=== PATIENT | male | born 1935 | race Caucasian/White ===

== ENCOUNTER 2017-12-08 10:44 | Inpatient (IN) | payer MEDICARE ==
[2017-12-08] MEDS ORDERED: Acetaminophen 325 MG Tab PO PRN (12:24)
[2017-12-08] MEDS: Furosemide 40 MG/4 ML VIAL IVPUSH SCH (13:09)
[2017-12-08] MEDS: Sodium Chloride 0.9% 10 ML Syringe FLUSH PRN (13:10)
--- NOTE | 2017-12-08 13:14 | PCM.HP ---
H&P History of Present Illness - General Date of Service: 12/08/17 Admit Problem/Dx: Admission Diagnosis/Problem Admission Diagnosis/Problem CHF, Congestive heart failure Source of Information: Patient, Family History Limitations: Reports: No Limitations - History of Present Illness Initial Comments - Free Text/Narative: Patient is in the area visiting family, drove up from [place] with his . He started with shortness of breath, wheezing and dry cough. Took two nitro yesterday with relief of shortness of breath. No fever. Patient has a complex medication history of ischemic cardiomyopathy, HTN, CAD with two stents placed in 2009 and ICD/pacemaker placed in 2016. Was previously on diuretics but stopped once the patient was placed on entresto which was about 1 year ago. Patient had to sleep with two pillows last night. No change in weight. Onset of Symptoms: Reports: Gradual Duration of Symptoms: Reports: Getting Worse Improves with: Reports: Medication, Rest Worsens with: Reports: Movement Associated Symptoms: Reports: Cough - Related Data Allergies/Adverse Reactions: Allergies Allergy/AdvReac Type Severity Reaction Status Date / Time Penicillins Allergy Shortness Verified 12/08/17 12:37 of Breath Past Medical History HEENT History: Reports: Cataract, Hard of Hearing, Impaired Vision Cardiovascular History: Reports: CAD, Cardiomyopathy, Heart Failure, [place], Pacemaker, Stents Musculoskeletal History: Reports: Osteoarthritis Neurological History: Reports: Other (See Below) Other Neuro History: Short term memory loss, currently testing for diagnosis Oncologic (Cancer) History: Reports: Squamous Cell Carcinoma Other Oncologic History: Nose Dermatologic History: Reports: Melanoma Other Dermatologic History: Nose - Infectious Disease History Infectious Disease History: Reports: Chicken Pox, Measles, Mumps - Past Surgical History HEENT Surgical History: Reports: Cataract Surgery Other HEENT Surgeries/Procedures: bilateral cat surgery Cardiovascular Surgical History: Reports: AICD, Pacer GI Surgical History: Reports: Hernia Repair/Other Dermatological Surgical History: Reports: Skin Biopsy Social & Family History - Family History Cardiac: Reports: Hypertension (in both parents) - Tobacco Use Smoking Status *Q: Never Smoker Second Hand Smoke Exposure: No - Caffeine Use Caffeine Use: Reports: Coffee, Tea - Recreational Drug Use Recreational Drug Use: No H&P Review of Systems - Review of Systems: Review Of Systems: See Below General: Reports: Fatigue HEENT: Reports: No Symptoms Pulmonary: Reports: Shortness of Breath, Wheezing, Cough Cardiovascular: Reports: Dyspnea on Exertion Gastrointestinal: Reports: No Symptoms Genitourinary: Reports: No Symptoms Musculoskeletal: Reports: No Symptoms Skin: Reports: No Symptoms Psychiatric: Reports: Depression Neurological: Reports: No Symptoms Hematologic/Lymphatic: Reports: No Symptoms Immunologic: Reports: No Symptoms Exam - Exam Exam: See Below - Vital Signs Vital Signs: Last Vital Signs Temp 96.8 F 12/08/17 12:11 Pulse 97 12/08/17 12:11 Resp 18 12/08/17 12:11 BP 109/76 12/08/17 12:11 Pulse Ox 98 12/08/17 12:11 Weight: 186 lb - Exam Quality Assessment: Supplemental Oxygen, DVT Prophylaxis General: Alert, Oriented, Cooperative HEENT: Conjunctiva Clear, EACs Clear, EOMI, Hearing Intact, Mucosa Moist & [place] , Nares Patent, Posterior Pharynx Clear Neck: Supple, Trachea Midline Lungs: Normal Respiratory Effort, Decreased Breath Sounds Cardiovascular: Regular Rate, Normal S1, Normal S2, Irregular Rhythm, Systolic Murmur GI/Abdominal Exam: Normal Bowel Sounds, Soft, Non-Tender, No Organomegaly, No Distention, No Abnormal Bruit Back Exam: Normal Inspection Extremities: Normal Inspection, Normal Range of Motion, Non-Tender, No Pedal Edema, Normal Capillary Refill Peripheral Pulses: 1+: Dorsalis Pedis (L), Dorsalis Pedis (R) Skin: Warm, Dry, Intact Neurological: Cranial Nerves Intact, Reflexes Equal Bilateral Neuro Extensive - Mental Status: Alert, Oriented x3, Normal Mood/Affect, Normal Cognition, Memory Intact Neuro Extensive - Motor, Sensory, Reflexes: CN II-XII Intact, Normal Gait DTR: 1+: Achilles (L), Achilles (R) Psychiatric: Alert, Normal Affect, Normal Mood - Problem List (1) Congestive heart failure (CHF) SNOMED Code(s): 98842086 ICD Code: I50.9 - HEART FAILURE, UNSPECIFIED Status: Acute Current Visit : Yes Qualifiers: Heart failure type: unspecified Heart failure chronicity: acute Qualified Code(s): I50.9 - Heart failure, unspecified (2) Hypertension SNOMED Code(s): 73203792 ICD Code: I10 - ESSENTIAL (PRIMARY) HYPERTENSION Status: Acute Current Visit: Yes Qualifiers: Hypertension type: essential hypertension Qualified Code(s): I10 - Essential (primary) hypertension (3) Ischemic cardiomyopathy SNOMED Code(s): 705152267 ICD Code: I25.5 - ISCHEMIC CARDIOMYOPATHY Status: Acute Current Visit: Yes (4) Atherosclerosis SNOMED Code(s): 02578686 ICD Code: I70.90 - UNSPECIFIED ATHEROSCLEROSIS Status: Acute Current Visit: Yes (5) Hyperlipemia SNOMED Code(s): 10273847 ICD Code: E78.5 - HYPERLIPIDEMIA, UNSPECIFIED Status: Acute Current Visit : Yes Qualifiers: Hyperlipidemia type: mixed hyperlipidemia Qualified Code(s): E78.2 - Mixed hyperlipidemia Problem List Initiated/Reviewed/Updated: Yes Orders Last 24hrs: Active Orders 24 hr Category Date Time Status Patient Status [ADT] Routine ADT 12/08/17 12:24 Ordered Ambulate [RC] PER UNIT ROUTINE Care 12/08/17 12:27 Ordered Cardiac Monitoring [RC] CONTINUOUS Care 12/08/17 12:27 Ordered EKG Documentation Completion [RC] ASDIRECTED Care 12/08/17 12:30 Ordered Intake and Output [RC] QSHIFT Care 12/08/17 12:26 Ordered May Shower [RC] ASDIRECTED Care 12/08/17 12:24 Ordered Oxygen Therapy [RC] PRN Care 12/08/17 12:24 Ordered Peripheral IV Care [RC] . DIRECTED Care 12/08/17 12:28 Ordered Up ad Cherise [RC] ASDIRECTED Care 12/08/17 12:24 Ordered VTE/DVT Education [RC] PER UNIT ROUTINE Care 12/08/17 12:24 Ordered Vital Signs [RC] Q4H Care 12/08/17 12:24 Ordered Regular Diet [DIET] Diet 12/08/17 Lunch Ordered Chest 2V [CR] Routine Exams 12/08/17 10:20 Taken CBC WITH AUTO DIFF [HEME] DAILY Lab 12/09/17 05:11 Ordered CBC WITH AUTO DIFF [HEME] DAILY Lab 12/10/17 05:11 Ordered CBC WITH AUTO DIFF [HEME] DAILY Lab 12/11/17 05:11 Ordered COMPREHENSIVE METABOLIC PN,CMP [CHEM] DAILY Lab 12/09/17 05:11 Ordered COMPREHENSIVE METABOLIC PN,CMP [CHEM] DAILY Lab 12/10/17 05:11 Ordered COMPREHENSIVE METABOLIC PN,CMP [CHEM] DAILY Lab 12/11/17 05:11 Ordered DD [D-DIMER QUANTITATIVE] [COAG] Routine Lab 12/08/17 12:32 Ordered PRO B-TYPE NATRIUR PEPT,BNPPRO [CHEM] DAILY Lab 12/09/17 05:11 Ordered PRO B-TYPE NATRIUR PEPT,BNPPRO [CHEM] DAILY Lab 12/10/17 05:11 Ordered PRO B-TYPE NATRIUR PEPT,BNPPRO [CHEM] DAILY Lab 12/11/17 05:11 Ordered TROPONIN I [CHEM] AM Lab 12/09/17 05:11 Ordered Acetaminophen [Tylenol] Med 12/08/17 12:24 Ordered 650 mg PO Q4H PRN Furosemide [Lasix] Med 12/08/17 13:00 Ordered 40 mg IVPUSH DAILY Sodium Chloride 0.9% [Saline Flush] Med 12/08/17 12:24 Ordered 10 ml FLUSH ASDIRECTED PRN Peripheral IV Insertion Adult [OM.PC] Routine Oth 12/08/17 12:24 Ordered Saline Lock Insert [OM.PC] Routine Oth 12/08/17 12:24 Ordered Resuscitation Status Routine Resus Stat 12/08/17 12:24 Ordered EKG 12 Lead [EK] AM Ther 12/09/17 05:11 Ordered Medication Orders Acetaminophen (Tylenol) 650 mg PO Q4H PRN PRN Reason: Pain (Mild 1-3)/fever Furosemide (Lasix) 40 mg IVPUSH DAILY [facility] Sodium Chloride (Saline Flush) 10 ml FLUSH ASDIRECTED PRN PRN Reason: Keep Vein Open Assessment/Plan Comment:: Long discussion was held with the patient and family in regards to his condition and CHF[facility] but recommended hospitalizing in [place] if needed and transfer to [place] if the patient has medical issues that have worsened. Patient and family agree to being hospitalized in [place]. FULL CODE status. Discussed with Dr Camarena, agreed with plan of care. Started on IV Lasix for the CHF. Started Lovenox, ordered d-dimer results are pending. Reviewed cardiology notes from [place] from 08/2017. Recheck labs in the morning. Telemetry ordered to follow heart rate and rhythm, patient may need to have aspirin changed to a different anticoagulation medication if in A fib and based off of CHADS-VAS score and follow up with cardiology. Last echocardiogram was 08/08/2016 with EF 35% with moderate left ventricular dysfunction. Patient needs inpatient stay due to acute CHF and current complex cardiac history. Marielos Nicholson,[employer]OTIVE PR[employer] SPECIALIST
[2017-12-08] MEDS ORDERED: Nitroglycerin 0.4 MG Tab.SL SL PRN (13:32)
[2017-12-08] MEDS: Enoxaparin 40 MG/0.4 ML Syringe SUBCUT SCH (14:22)
[2017-12-08] MEDS: Carvedilol 6.25 MG Tab PO SCH (17:29)
[2017-12-08] MEDS: Sacubitril/Valsartan [Entresto 24 Mg-26 Mg Tablet] PO SCH (18:09)
[2017-12-08] MEDS ORDERED: LORazepam 0.5 MG Tab PO ONE (19:36)
[2017-12-08] MEDS: atorvaSTATin 40 MG Tab PO SCH (19:43)
[2017-12-08] MEDS: Aspirin 81 MG Tab.EC PO SCH (19:43)
[2017-12-08] MEDS: Finasteride 5 MG Tab PO SCH (19:44)
[2017-12-09] MEDS ORDERED: LORazepam 1 MG Tab PO ONE (00:24)
[2017-12-09 07:17] LABS: CHLORIDE,CL 108 mmol/L (98-107); SODIUM,NA 142 mmol/L (136-145)
[2017-12-09] MEDS: Enoxaparin 40 MG/0.4 ML Syringe SUBCUT SCH (07:44)
[2017-12-09] MEDS: Sacubitril/Valsartan [Entresto 24 Mg-26 Mg Tablet] PO SCH ×2 (07:45→17:25)
[2017-12-09] MEDS: Furosemide 40 MG/4 ML VIAL IVPUSH SCH (07:45)
[2017-12-09] MEDS: Fish Oil/Omega-3 Fatty Acids 1 Gm Cap PO SCH (07:45)
[2017-12-09] MEDS: Carvedilol 6.25 MG Tab PO SCH ×2 (07:46→17:23)
[2017-12-09] MEDS: Sodium Chloride 0.9% 10 ML Syringe FLUSH PRN ×3 (07:46→16:07)
[2017-12-09] MEDS ORDERED: Azithromycin 500 MG in Sodium Chloride 0.9% 250 ML IV ONE (11:13)
--- NOTE | 2017-12-09 15:18 | PCM.PN ---
- General Info Date of Service: 12/09/17 Admission Dx/Problem (Free Text): Admission Diagnosis/Problem Admission Diagnosis/Problem CHF, Congestive heart failure Functional Status: Reports: Other (still some shortness of breath) - Review of Systems General: Reports: Weakness HEENT: Reports: No Symptoms Pulmonary: Reports: Shortness of Breath, Cough (dry) Cardiovascular: Reports: No Symptoms Gastrointestinal: Reports: No Symptoms Genitourinary: Reports: No Symptoms Musculoskeletal: Reports: No Symptoms Skin: Reports: No Symptoms Neurological: Reports: No Symptoms Psychiatric: Reports: No Symptoms - Patient Data Vitals - Most Recent: Last Vital Signs Temp 99 F 12/09/17 12:00 Pulse 95 12/09/17 12:00 Resp 24 H 12/09/17 12:00 BP 127/93 H 12/09/17 12:00 Pulse Ox 99 12/09/17 12:00 Weight - Most Recent: 185 lb 15.993 oz I&O - Last 24 Hours: Intake & Output 12/09/17 12/09/17 12/09/17 06:59 14:59 22:59 Output Total 300 850 Balance -300 -850 Lab Results Last 24 Hours: Laboratory Results - last 24 hr 12/09/17 12/09/17 12/09/17 Range/Units 06:40 06:40 11:28 WBC 7.0 (4.0-10.2) K/uL RBC 4.07 L (4.33-5.41) M/uL Hgb 12.9 L (13.1-16.8) g/dL Hct 38.2 L (39.0-49.0) % MCV 93.9 (84.0-98.0) fL MCH 31.7 (28.2-33.3) pg MCHC 33.8 (31.7-36.0) g/dL RDW 13.5 (11.2-14.1) % Plt Count 114 L (150-350) K/uL Neut % (Auto) 60.3 (45.0-80.0) % Lymph % (Auto) 27.8 (10.0-50.0) % [place] % (Auto) 9.1 (2.0-14.0) % Eos % (Auto) 2.7 (0.0-5.0) % Baso % (Auto) 0.1 (0.0-2.0) % Neut # (Auto) 4.24 (1.40-7.00) K/uL Lymph # (Auto) 1.96 (0.50-3.50) K/uL [place] # (Auto) 0.64 (0.00-1.00) K/uL Eos # (Auto) 0.19 (0.00-0.50) K/uL Baso # (Auto) 0.01 (0.00-0.20) K/uL Sodium 142 (136-145) mmol/L Potassium 3.5 (3.5-5.1) mmol/L Chloride 108 H (98-107) mmol/L Carbon Dioxide 25.2 (21.0-32.0) mmol/L BUN 18 (7-18) mg/dL Creatinine 1.08 (0.51-1.17) mg/dL Est Cr Clr Drug Dosing 54.55 mL/min Estimated GFR (MDRD) > 60 mL/min Glucose 96 (74-106) mg/dL Calcium 8.1 L (8.5-10.1) mg/dL Total Bilirubin 1.1 H (0.2-1.0) mg/dL AST 23 (15-37) U/L ALT 27 (12-78) U/L Alkaline Phosphatase 72 (46-116) IU/L Troponin I 0.026 0.023 (0.000-0.056) ng/mL NT-Pro-B Natriuret Pep 6047 H (0-125) pg/mL Total Protein 5.9 L (6.4-8.2) g/dL Albumin 2.8 L (3.4-5.0) g/dL Med Orders - Current: Current Medications Acetaminophen (Tylenol) 650 mg PO Q4H PRN PRN Reason: Pain (Mild 1-3)/fever Aspirin (Halfprin) 81 mg PO BEDTIME [facility] Last Admin: 12/08/17 19:43 Dose: 81 mg Atorvastatin Calcium (Lipitor) 80 mg PO BEDTIME [facility] Last Admin: 12/08/17 19:43 Dose: 80 mg Carvedilol (Coreg) 6.25 mg PO BID [facility] Last Admin: 12/09/17 07:46 Dose: 6.25 mg Coenzyme Q10 (Coenzyme Q10) 300 mg PO DAILY [facility] Last Admin: 12/09/17 07:46 Dose: 300 mg Enoxaparin Sodium (Lovenox) 40 mg SUBCUT DAILY [facility] Last Admin: 12/09/17 07:44 Dose: 40 mg Finasteride (Proscar) 5 mg PO BEDTIME [facility] Last Admin: 12/08/17 19:44 Dose: 5 mg Fish Oil (Fish Oil) 1 gm PO DAILY [facility] Last Admin: 12/09/17 07:45 Dose: 1 gm Furosemide (Lasix) 40 mg IVPUSH DAILY [facility] Last Admin: 12/09/17 07:45 Dose: 40 mg Nitroglycerin (Nitrostat) 0.4 mg SL Q5M PRN PRN Reason: Chest Pain Sacubitril/Valsartan [Entresto 24 Mg-26 Mg Tablet] 1 tab PO BID [facility] Last Admin: 12/09/17 07:45 Dose: 1 tab Sodium Chloride (Saline Flush) 10 ml FLUSH ASDIRECTED PRN PRN Reason: Keep Vein Open Last Admin: 12/09/17 11:40 Dose: 10 ml Discontinued Medications Azithromycin 500 mg/ Sodium (Chloride) 250 mls @ 250 mls/hr IV ONETIME ONE Stop: 12/09/17 12:12 Last Admin: 12/09/17 11:40 Dose: 250 mls/hr Lorazepam (Ativan) 0.5 mg PO ONETIME ONE Stop: 12/08/17 19:37 Last Admin: 12/08/17 20:02 Dose: 0.5 mg Lorazepam (Ativan) 1 mg PO ONETIME ONE Stop: 12/09/17 00:25 Last Admin: 12/09/17 00:38 Dose: 1 mg - Exam Quality Assessment: Supplemental Oxygen, DVT Prophylaxis General: Alert, Cooperative, No Acute Distress HEENT: Pupils Equal, Pupils Reactive, Mucous Membr. Moist/[place] Neck: Trachea Midline, No JVD, No Thyromegaly Lungs: Normal Respiratory Effort, Decreased Breath Sounds, Crackles, Wheezing Cardiovascular: Irregular Rhythm GI/Abdominal Exam: Soft, Non-Tender, No Distention (Male) Exam: Deferred Back Exam: Normal Inspection Extremities: Normal Inspection, Non-Tender, No Pedal Edema Skin: Warm, Dry, Intact Neurological: No New Focal Deficit Psy/Mental Status: Alert, Normal Affect, Normal Mood - Problem List & Annotations (1) Interstitial lung disease SNOMED Code(s): 521995523 Code(s): J84.9 - INTERSTITIAL PULMONARY DISEASE, UNSPECIFIED Status: Acute Priority: High Current Visit: Yes (2) Atherosclerosis SNOMED Code(s): 38029819 Code(s): I70.90 - UNSPECIFIED ATHEROSCLEROSIS Status: Acute Current Visit : Yes (3) Congestive heart failure (CHF) SNOMED Code(s): 20391967 Code(s): I50.9 - HEART FAILURE, UNSPECIFIED Status: Acute Current Visit: Yes Qualifiers: Heart failure type: unspecified Heart failure chronicity: acute Qualified Code(s): I50.9 - Heart failure, unspecified (4) Hyperlipemia SNOMED Code(s): 15167856 Code(s): E78.5 - HYPERLIPIDEMIA, UNSPECIFIED Status: Acute Current Visit : Yes Qualifiers: Hyperlipidemia type: mixed hyperlipidemia Qualified Code(s): E78.2 - Mixed hyperlipidemia (5) Hypertension SNOMED Code(s): 60441112 Code(s): I10 - ESSENTIAL (PRIMARY) HYPERTENSION Status: Acute Current Visit: Yes Qualifiers: Hypertension type: essential hypertension Qualified Code(s): I10 - Essential (primary) hypertension (6) Ischemic cardiomyopathy SNOMED Code(s): 621053370 Code(s): I25.5 - ISCHEMIC CARDIOMYOPATHY Status: Acute Current Visit: Yes - Problem List Review Problem List Initiated/Reviewed/Updated: Yes - My Orders Last 24 Hours: My Active Orders 12/09/17 11:25 MYCOPLASMA IGM RAPID [MREF] Routine 12/09/17 14:52 CRP [C-REACTIVE PROTEIN] [CHEM] Routine 12/09/17 15:00 Meropenem [Merrem] 1 gm Sodium Chloride 0.9% [Normal Saline] 100 ml IV Q12H 12/10/17 05:11 EKG Documentation Completion [RC] ASDIRECTED BLOOD GAS VENOUS [BG] Routine CRP [C-REACTIVE PROTEIN] [CHEM] DAILY EKG 12 Lead [EK] Routine 12/10/17 10:00 Azithromycin [Zithromax] 500 mg Sodium Chloride 0.9% [Normal Saline] 250 ml IV Q24H 12/11/17 05:11 CRP [C-REACTIVE PROTEIN] [CHEM] DAILY - Plan Plan:: Long discussion was held with the patient and family in regards to his condition and CHF. Called to [facility] hospitalist in regards to admitting the patient, but recommended hospitalizing in [place] if needed and transfer to [place] if the patient has medical issues that have worsened. Patient and family agree to being hospitalized in [place]. FULL CODE status. Discussed with Dr Camarena, agreed with plan of care. Started on IV Lasix for the CHF. Started Lovenox, ordered d-dimer results are pending. Reviewed cardiology notes from [place] from 08/2017. Recheck labs in the morning. Telemetry ordered to follow heart rate and rhythm, patient may need to have aspirin changed to a different anticoagulation medication if in A fib and based off of CHADS-VAS score and follow up with cardiology. Last echocardiogram was 08/08/2016 with EF 35% with moderate left ventricular dysfunction. Patient needs inpatient stay due to acute CHF and current complex cardiac history. Marielos Nicholson,HEAD [employer] 12/09/17 Nicol Hamm MD Still not feeling the best. Still palpitations and pounding in his chest. No chest pain. Still a dry cough and shortness of breath. Did stay in some hotels recently. Discussed mycoplasma and interstiitial lung disease. Quit smoking ~30 years ago but significant exposure to dirt and dust. Will add antibiotics. Continue IV lasix. Discussed continued hospitalization in [place] versus transfer to [place]. He prefers staying in [place] at this time.
[2017-12-09] MEDS ORDERED: methylPREDNISolone Sodium Succinate 40 MG/1 ML SDV IVPUSH ONE (16:00)
[2017-12-09] MEDS: Meropenem 1 GM in Sodium Chloride 0.9% 100 ML IV SCH (16:07)
[2017-12-09] MEDS: Aspirin 81 MG Tab.EC PO SCH (19:16)
[2017-12-09] MEDS: atorvaSTATin 40 MG Tab PO SCH (19:16)
[2017-12-09] MEDS: Finasteride 5 MG Tab PO SCH (19:16)
[2017-12-09] MEDS: LORazepam 1 MG Tab PO PRN (21:22)
[2017-12-10] MEDS: Meropenem 1 GM in Sodium Chloride 0.9% 100 ML IV SCH ×2 (03:36→15:35)
[2017-12-10] MEDS: Sodium Chloride 0.9% 10 ML Syringe FLUSH PRN ×3 (03:36→09:39)
[2017-12-10 06:56] LABS: O2 DELIVERY DEVICE NASAL CANNULA
[2017-12-10 07:20] LABS: PH,VENOUS 7.47 (7.31-7.41)
[2017-12-10 07:21] LABS: BASE EXCESS VENOUS 1 mmol/L ((-2)-3); BICARBONATE,VENOUS 25 mmol/L (23-28); O2 SATURATION VENOUS 100 %; PCO2 VENOUS 34 mmHG (41-51); PO2 VENOUS 189 mmHG
[2017-12-10 07:56] LABS: CHLORIDE,CL 106 mmol/L (98-107); SODIUM,NA 141 mmol/L (136-145)
[2017-12-10] MEDS: Carvedilol 6.25 MG Tab PO SCH (07:56)
[2017-12-10] MEDS: Enoxaparin 40 MG/0.4 ML Syringe SUBCUT SCH (07:56)
[2017-12-10] MEDS: Fish Oil/Omega-3 Fatty Acids 1 Gm Cap PO SCH (07:57)
[2017-12-10] MEDS: methylPREDNISolone Sodium Succinate 40 MG/1 ML SDV IVPUSH SCH (07:57)
[2017-12-10] MEDS: Furosemide 40 MG/4 ML VIAL IVPUSH SCH (07:57)
[2017-12-10] MEDS: Sacubitril/Valsartan [Entresto 24 Mg-26 Mg Tablet] PO SCH ×2 (07:58→17:10)
[2017-12-10] MEDS: Azithromycin 500 MG in Sodium Chloride 0.9% 250 ML IV SCH (09:39)
--- NOTE | 2017-12-10 15:35 | PCM.PN ---
- General Info Date of Service: 12/10/17 Admission Dx/Problem (Free Text): Admission Diagnosis/Problem Admission Diagnosis/Problem CHF, Congestive heart failure Functional Status: Reports: Pain Controlled - Review of Systems General: Reports: No Symptoms HEENT: Reports: No Symptoms Pulmonary: Reports: Shortness of Breath Cardiovascular: Reports: Palpitations Gastrointestinal: Reports: No Symptoms Genitourinary: Reports: No Symptoms Musculoskeletal: Reports: No Symptoms Skin: Reports: No Symptoms Neurological: Reports: No Symptoms Psychiatric: Reports: Depression, Anxiety - Patient Data Vitals - Most Recent: Last Vital Signs Temp 97.6 F 12/10/17 12:00 Pulse 62 12/10/17 12:00 Resp 16 12/10/17 12:00 BP 117/70 12/10/17 12:00 Pulse Ox 93 L 12/10/17 12:00 Weight - Most Recent: 176 lb 11.2 oz I&O - Last 24 Hours: Intake & Output 12/10/17 12/10/17 12/10/17 06:59 14:59 22:59 Intake Total 965 1030 Output Total 500 Balance 965 530 Lab Results Last 24 Hours: Laboratory Results - last 24 hr 12/09/17 12/10/17 12/10/17 Range/Units 06:40 06:35 06:35 WBC 7.3 (4.0-10.2) K/uL RBC 4.20 L (4.33-5.41) M/uL Hgb 13.5 (13.1-16.8) g/dL Hct 38.8 L (39.0-49.0) % MCV 92.4 (84.0-98.0) fL MCH 32.1 (28.2-33.3) pg MCHC 34.8 (31.7-36.0) g/dL RDW 13.2 (11.2-14.1) % Plt Count 119 L (150-350) K/uL Neut % (Auto) 73.2 (45.0-80.0) % Lymph % (Auto) 19.5 (10.0-50.0) % [place] % (Auto) 7.1 (2.0-14.0) % Eos % (Auto) 0.1 (0.0-5.0) % Baso % (Auto) 0.1 (0.0-2.0) % Neut # (Auto) 5.33 (1.40-7.00) K/uL Lymph # (Auto) 1.42 (0.50-3.50) K/uL [place] # (Auto) 0.52 (0.00-1.00) K/uL Eos # (Auto) 0.01 (0.00-0.50) K/uL Baso # (Auto) 0.01 (0.00-0.20) K/uL D-Dimer, Quantitative (0-400) ng/mL VBG pH (7.31-7.41) VBG pCO2 (41-51) mmHG VBG pO2 mmHG VBG HCO3 (23-28) mmol/L VBG Total CO2 mmol/L VBG O2 Saturation % VBG Base Excess ((-2)-3) mmol/L O2 Delivery Device Sodium 141 (136-145) mmol/L Potassium 3.5 (3.5-5.1) mmol/L Chloride 106 (98-107) mmol/L Carbon Dioxide 24.5 (21.0-32.0) mmol/L BUN 18 (7-18) mg/dL Creatinine 1.05 (0.51-1.17) mg/dL Est Cr Clr Drug Dosing 55.92 mL/min Estimated GFR (MDRD) > 60 mL/min Glucose 120 H (74-106) mg/dL Calcium 8.0 L (8.5-10.1) mg/dL Total Bilirubin 1.1 H (0.2-1.0) mg/dL AST 21 (15-37) U/L ALT 28 (12-78) U/L Alkaline Phosphatase 75 (46-116) IU/L C-Reactive Protein 0.7 0.7 (<=0.9) mg/dL NT-Pro-B Natriuret Pep 5685 H (0-125) pg/mL Total Protein 6.0 L (6.4-8.2) g/dL Albumin 2.8 L (3.4-5.0) g/dL 12/10/17 12/10/17 Range/Units 06:35 06:35 WBC (4.0-10.2) K/uL RBC (4.33-5.41) M/uL Hgb (13.1-16.8) g/dL Hct (39.0-49.0) % MCV (84.0-98.0) fL MCH (28.2-33.3) pg MCHC (31.7-36.0) g/dL RDW (11.2-14.1) % Plt Count (150-350) K/uL Neut % (Auto) (45.0-80.0) % Lymph % (Auto) (10.0-50.0) % [place] % (Auto) (2.0-14.0) % Eos % (Auto) (0.0-5.0) % Baso % (Auto) (0.0-2.0) % Neut # (Auto) (1.40-7.00) K/uL Lymph # (Auto) (0.50-3.50) K/uL [place] # (Auto) (0.00-1.00) K/uL Eos # (Auto) (0.00-0.50) K/uL Baso # (Auto) (0.00-0.20) K/uL D-Dimer, Quantitative 247 (0-400) ng/mL VBG pH 7.47 H (7.31-7.41) VBG pCO2 34 L (41-51) mmHG VBG pO2 189 mmHG VBG HCO3 25 (23-28) mmol/L VBG Total CO2 26 mmol/L VBG O2 Saturation 100 % VBG Base Excess 1 ((-2)-3) mmol/L O2 Delivery Device Nasal cannula Sodium (136-145) mmol/L Potassium (3.5-5.1) mmol/L Chloride (98-107) mmol/L Carbon Dioxide (21.0-32.0) mmol/L BUN (7-18) mg/dL Creatinine (0.51-1.17) mg/dL Est Cr Clr Drug Dosing mL/min Estimated GFR (MDRD) mL/min Glucose (74-106) mg/dL Calcium (8.5-10.1) mg/dL Total Bilirubin (0.2-1.0) mg/dL AST (15-37) U/L ALT (12-78) U/L Alkaline Phosphatase (46-116) IU/L C-Reactive Protein (<=0.9) mg/dL NT-Pro-B Natriuret Pep (0-125) pg/mL Total Protein (6.4-8.2) g/dL Albumin (3.4-5.0) g/dL Fran Results Last 24 Hours: Microbiology 12/09/17 11:25 Mycoplasma Serology - Final Blood Med Orders - Current: Current Medications Acetaminophen (Tylenol) 650 mg PO Q4H PRN PRN Reason: Pain (Mild 1-3)/fever Aspirin (Halfprin) 81 mg PO BEDTIME [facility] Last Admin: 12/09/17 19:16 Dose: 81 mg Atorvastatin Calcium (Lipitor) 80 mg PO BEDTIME [facility] Last Admin: 12/09/17 19:16 Dose: 80 mg Carvedilol (Coreg) 3.125 mg PO BID [facility] Coenzyme Q10 (Coenzyme Q10) 300 mg PO DAILY [facility] Last Admin: 12/10/17 07:56 Dose: 300 mg Enoxaparin Sodium (Lovenox) 40 mg SUBCUT DAILY [facility] Last Admin: 12/10/17 07:56 Dose: 40 mg Finasteride (Proscar) 5 mg PO BEDTIME [facility] Last Admin: 12/09/17 19:16 Dose: 5 mg Fish Oil (Fish Oil) 1 gm PO DAILY [facility] Last Admin: 12/10/17 07:57 Dose: 1 gm Fluoxetine HCl (Prozac) 20 mg PO DAILY [facility] Furosemide (Lasix) 40 mg IVPUSH DAILY [facility] Last Admin: 12/10/17 07:57 Dose: 40 mg Azithromycin 500 mg/ Sodium (Chloride) 250 mls @ 250 mls/hr IV Q24H [facility] Stop: 12/11/17 10:59 Last Admin: 12/10/17 09:39 Dose: 250 mls/hr Meropenem 1 gm/ Sodium (Chloride) 100 mls @ 200 mls/hr IV Q12H [facility] Last Admin: 12/10/17 03:36 Dose: 200 mls/hr Lorazepam (Ativan) 1 mg PO BEDTIME PRN PRN Reason: Anxiety/Insomnia Last Admin: 12/09/17 21:22 Dose: 1 mg Methylprednisolone Sodium Succinate (Solu-Medrol) 40 mg IVPUSH DAILY [facility] Last Admin: 12/10/17 07:57 Dose: 40 mg Nitroglycerin (Nitrostat) 0.4 mg SL Q5M PRN PRN Reason: Chest Pain Sacubitril/Valsartan [Entresto 24 Mg-26 Mg Tablet] 1 tab PO BID [facility] Last Admin: 12/10/17 07:58 Dose: 1 tab Sodium Chloride (Saline Flush) 10 ml FLUSH ASDIRECTED PRN PRN Reason: Keep Vein Open Last Admin: 12/10/17 09:39 Dose: 10 ml Discontinued Medications Carvedilol (Coreg) 6.25 mg PO BID [facility] Last Admin: 12/10/17 07:56 Dose: 6.25 mg Azithromycin 500 mg/ Sodium (Chloride) 250 mls @ 250 mls/hr IV ONETIME ONE Stop: 12/09/17 12:12 Last Admin: 12/09/17 11:40 Dose: 250 mls/hr Lorazepam (Ativan) 0.5 mg PO ONETIME ONE Stop: 12/08/17 19:37 Last Admin: 12/08/17 20:02 Dose: 0.5 mg Lorazepam (Ativan) 1 mg PO ONETIME ONE Stop: 12/09/17 00:25 Last Admin: 12/09/17 00:38 Dose: 1 mg Methylprednisolone Sodium Succinate (Solu-Medrol) 40 mg IVPUSH ONETIME ONE Stop: 12/09/17 16:01 Last Admin: 12/09/17 16:07 Dose: 40 mg - Exam Quality Assessment: Supplemental Oxygen General: Alert, Cooperative, No Acute Distress HEENT: Mucous Membr. Moist/[place] Neck: Trachea Midline, No JVD Lungs: Normal Respiratory Effort, Decreased Breath Sounds Cardiovascular: Irregular Rhythm GI/Abdominal Exam: Soft, Non-Tender, No Distention (Male) Exam: Deferred Back Exam: Normal Inspection Extremities: Normal Inspection, Non-Tender, No Pedal Edema Skin: Warm, Dry, Intact Neurological: No New Focal Deficit Psy/Mental Status: Alert, Anxious - Problem List & Annotations (1) Interstitial lung disease SNOMED Code(s): 707514850 Code(s): J84.9 - INTERSTITIAL PULMONARY DISEASE, UNSPECIFIED Status: Acute Priority: High Current Visit: Yes (2) Atherosclerosis SNOMED Code(s): 80848183 Code(s): I70.90 - UNSPECIFIED ATHEROSCLEROSIS Status: Acute Current Visit : Yes (3) Congestive heart failure (CHF) SNOMED Code(s): 49149775 Code(s): I50.9 - HEART FAILURE, UNSPECIFIED Status: Acute Current Visit: Yes Qualifiers: Heart failure type: unspecified Heart failure chronicity: acute Qualified Code(s): I50.9 - Heart failure, unspecified (4) Hyperlipemia SNOMED Code(s): 90754326 Code(s): E78.5 - HYPERLIPIDEMIA, UNSPECIFIED Status: Acute Current Visit : Yes Qualifiers: Hyperlipidemia type: mixed hyperlipidemia Qualified Code(s): E78.2 - Mixed hyperlipidemia (5) Hypertension SNOMED Code(s): 82131968 Code(s): I10 - ESSENTIAL (PRIMARY) HYPERTENSION Status: Acute Current Visit: Yes Qualifiers: Hypertension type: essential hypertension Qualified Code(s): I10 - Essential (primary) hypertension (6) Ischemic cardiomyopathy SNOMED Code(s): 461858787 Code(s): I25.5 - ISCHEMIC CARDIOMYOPATHY Status: Acute Current Visit: Yes (7) Anxiety SNOMED Code(s): 42242757 Code(s): F41.9 - ANXIETY DISORDER, UNSPECIFIED Status: Acute Priority: High Current Visit: Yes (8) Depression SNOMED Code(s): 92041035 Code(s): F32.9 - MAJOR DEPRESSIVE DISORDER, SINGLE EPISODE, UNSPECIFIED Status: Acute Priority: High Current Visit: Yes Qualifiers: Depression Type: reactive depression Qualified Code(s): F32.9 - Major depressive disorder, single episode, unspecified - Problem List Review Problem List Initiated/Reviewed/Updated: Yes - My Orders Last 24 Hours: My Active Orders 12/09/17 15:00 Meropenem [Merrem] 1 gm Sodium Chloride 0.9% [Normal Saline] 100 ml IV Q12H 12/09/17 20:08 LORazepam [Ativan] 1 mg PO BEDTIME PRN 12/10/17 05:11 EKG Documentation Completion [RC] ASDIRECTED 12/10/17 08:00 methylPREDNISolone Sod Succ [Solu-MEDROL] 40 mg IVPUSH DAILY 12/10/17 10:00 Azithromycin [Zithromax] 500 mg Sodium Chloride 0.9% [Normal Saline] 250 ml IV Q24H 12/10/17 15:25 Consult to Occupational Therapy [OT Evaluation and Treatment] [CONS] Routine Consult to Physical Therapy [PT Evaluation and Treatment] [CONS] Routine 12/10/17 15:30 FLUoxetine [PROzac] 20 mg PO DAILY 12/10/17 18:00 Carvedilol [Coreg] 3.125 mg PO BID 12/11/17 05:11 Chest 2V [CR] Routine CRP [C-REACTIVE PROTEIN] [CHEM] DAILY TROPONIN I [CHEM] Routine - Plan Plan:: Long discussion was held with the patient and family in regards to his condition and CHF. Called to [place] hospitalist in regards to admitting the patient, but recommended hospitalizing in [place] if needed and transfer to [place] if the patient has medical issues that have worsened. Patient and family agree to being hospitalized in [place]. FULL CODE status. Discussed with Dr Camarena, agreed with plan of care. Started on IV Lasix for the CHF. Started Lovenox, ordered d-dimer results are pending. Reviewed cardiology notes from [place] from 08/2017. Recheck labs in the morning. Telemetry ordered to follow heart rate and rhythm, patient may need to have aspirin changed to a different anticoagulation medication if in A fib and based off of CHADS-VAS score and follow up with cardiology. Last echocardiogram was 08/08/2016 with EF 35% with moderate left ventricular dysfunction. Patient needs inpatient stay due to acute CHF and current complex cardiac history. Marielos Nicholson,NAIL W[employer]TER 12/09/17 Nicol Hamm MD Still not feeling the best. Still palpitations and pounding in his chest. No chest pain. Still a dry cough and shortness of breath. Did stay in some hotels recently. Discussed mycoplasma and interstiitial lung disease. Quit smoking ~30 years ago but significant exposure to dirt and dust. Will add antibiotics. Continue IV lasix. Discussed continued hospitalization in [place] versus transfer to [place]. He prefers staying in [place] at this time. 12/10/17 Nicol Hamm MD Starting to feel a little better. More relaxed after lorazepam. He and his want him to start Prozac. Mycoplasma negative. Echo report noted. Continue medical treatment.
[2017-12-10] MEDS: FLUoxetine 20 MG Cap PO SCH (16:05)
[2017-12-10] MEDS: Carvedilol 3.125 MG Tab PO SCH (17:09)
[2017-12-10] MEDS: atorvaSTATin 40 MG Tab PO SCH (19:17)
[2017-12-10] MEDS: Aspirin 81 MG Tab.EC PO SCH (19:17)
[2017-12-10] MEDS: Finasteride 5 MG Tab PO SCH (19:17)
[2017-12-10] MEDS: LORazepam 1 MG Tab PO PRN (21:52)
[2017-12-11] MEDS: Meropenem 1 GM in Sodium Chloride 0.9% 100 ML IV SCH ×2 (03:46→15:42)
[2017-12-11] MEDS: Sodium Chloride 0.9% 10 ML Syringe FLUSH PRN ×3 (03:46→09:38)
[2017-12-11 07:46] LABS: CHLORIDE,CL 108 mmol/L (98-107); SODIUM,NA 140 mmol/L (136-145)
[2017-12-11] MEDS: Furosemide 40 MG/4 ML VIAL IVPUSH SCH (08:02)
[2017-12-11] MEDS: FLUoxetine 20 MG Cap PO SCH (08:03)
[2017-12-11] MEDS: Carvedilol 3.125 MG Tab PO SCH ×2 (08:04→17:35)
[2017-12-11] MEDS: Sacubitril/Valsartan [Entresto 24 Mg-26 Mg Tablet] PO SCH ×2 (08:05→17:35)
[2017-12-11] MEDS: Fish Oil/Omega-3 Fatty Acids 1 Gm Cap PO SCH (08:05)
[2017-12-11] MEDS: methylPREDNISolone Sodium Succinate 40 MG/1 ML SDV IVPUSH SCH (08:06)
[2017-12-11] MEDS: Enoxaparin 40 MG/0.4 ML Syringe SUBCUT SCH (08:06)
[2017-12-11] MEDS: Azithromycin 500 MG in Sodium Chloride 0.9% 250 ML IV SCH (09:38)
[2017-12-11] MEDS ORDERED: LORazepam 0.5 MG Tab PO PRN (17:42)
--- NOTE | 2017-12-11 18:00 | PCM.PN ---
- General Info Date of Service: 12/11/17 Admission Dx/Problem (Free Text): Admission Diagnosis/Problem Admission Diagnosis/Problem CHF, Congestive heart failure Functional Status: Reports: Pain Controlled - Review of Systems General: Reports: Other (still some shortness of breath and palpitations) HEENT: Reports: No Symptoms Pulmonary: Reports: Shortness of Breath, Cough Cardiovascular: Reports: Palpitations, Orthopnea Gastrointestinal: Reports: No Symptoms Genitourinary: Reports: No Symptoms Musculoskeletal: Reports: No Symptoms Skin: Reports: No Symptoms Neurological: Reports: No Symptoms Psychiatric: Reports: Anxiety - Patient Data Vitals - Most Recent: Last Vital Signs Temp 98.5 F 12/11/17 15:56 Pulse 62 12/11/17 17:35 Resp 16 12/11/17 15:56 BP 117/62 12/11/17 17:35 Pulse Ox 93 L 12/11/17 15:56 Weight - Most Recent: 179 lb 8 oz I&O - Last 24 Hours: Intake & Output 12/11/17 12/11/17 12/11/17 06:59 14:59 22:59 Intake Total 120 1110 250 Output Total 350 2100 Balance -230 -990 250 Lab Results Last 24 Hours: Laboratory Results - last 24 hr 12/11/17 12/11/17 Range/Units 07:00 07:00 WBC 11.6 H (4.0-10.2) K/uL RBC 4.27 L (4.33-5.41) M/uL Hgb 13.5 (13.1-16.8) g/dL Hct 39.7 (39.0-49.0) % MCV 93.0 (84.0-98.0) fL MCH 31.6 (28.2-33.3) pg MCHC 34.0 (31.7-36.0) g/dL RDW 13.7 (11.2-14.1) % Plt Count 111 L (150-350) K/uL Neut % (Auto) 69.1 (45.0-80.0) % Lymph % (Auto) 21.9 (10.0-50.0) % [place] % (Auto) 8.0 (2.0-14.0) % Eos % (Auto) 0.9 (0.0-5.0) % Baso % (Auto) 0.1 (0.0-2.0) % Neut # (Auto) 8.01 H (1.40-7.00) K/uL Lymph # (Auto) 2.54 (0.50-3.50) K/uL [place] # (Auto) 0.93 (0.00-1.00) K/uL Eos # (Auto) 0.10 (0.00-0.50) K/uL Baso # (Auto) 0.01 (0.00-0.20) K/uL Sodium 140 (136-145) mmol/L Potassium 3.9 (3.5-5.1) mmol/L Chloride 108 H (98-107) mmol/L Carbon Dioxide 23.6 (21.0-32.0) mmol/L BUN 22 H (7-18) mg/dL Creatinine 1.07 (0.51-1.17) mg/dL Est Cr Clr Drug Dosing 54.88 mL/min Estimated GFR (MDRD) > 60 mL/min Glucose 102 (74-106) mg/dL Calcium 8.0 L (8.5-10.1) mg/dL Total Bilirubin 0.8 (0.2-1.0) mg/dL AST 34 (15-37) U/L ALT 27 (12-78) U/L Alkaline Phosphatase 66 (46-116) IU/L Troponin I 0.018 (0.000-0.056) ng/mL C-Reactive Protein 0.4 (<=0.9) mg/dL NT-Pro-B Natriuret Pep 2115 H (0-125) pg/mL Total Protein 5.7 L (6.4-8.2) g/dL Albumin 2.5 L (3.4-5.0) g/dL Med Orders - Current: Current Medications Acetaminophen (Tylenol) 650 mg PO Q4H PRN PRN Reason: Pain (Mild 1-3)/fever Aspirin (Halfprin) 81 mg PO BEDTIME [facility] Last Admin: 12/10/17 19:17 Dose: 81 mg Atorvastatin Calcium (Lipitor) 80 mg PO BEDTIME [facility] Last Admin: 12/10/17 19:17 Dose: 80 mg Azithromycin (Zithromax) 500 mg PO DAILY [facility] Carvedilol (Coreg) 3.125 mg PO BID [facility] Last Admin: 12/11/17 17:35 Dose: 3.125 mg Coenzyme Q10 (Coenzyme Q10) 300 mg PO DAILY [facility] Last Admin: 12/11/17 08:03 Dose: 300 mg Enoxaparin Sodium (Lovenox) 40 mg SUBCUT DAILY [facility] Last Admin: 12/11/17 08:06 Dose: 40 mg Finasteride (Proscar) 5 mg PO BEDTIME [facility] Last Admin: 12/10/17 19:17 Dose: 5 mg Fish Oil (Fish Oil) 1 gm PO DAILY [facility] Last Admin: 12/11/17 08:05 Dose: 1 gm Fluoxetine HCl (Prozac) 20 mg PO DAILY [facility] Last Admin: 12/11/17 08:03 Dose: 20 mg Furosemide (Lasix) 40 mg IVPUSH DAILY [facility] Last Admin: 12/11/17 08:02 Dose: 40 mg Meropenem 1 gm/ Sodium (Chloride) 100 mls @ 200 mls/hr IV Q12H [facility] Last Admin: 12/11/17 15:42 Dose: 200 mls/hr Lorazepam (Ativan) 1 mg PO BEDTIME [facility] Lorazepam (Ativan) 0.25 mg PO Q4H PRN PRN Reason: Anxiety Methylprednisolone Sodium Succinate (Solu-Medrol) 40 mg IVPUSH DAILY [facility] Last Admin: 12/11/17 08:06 Dose: 40 mg Nitroglycerin (Nitrostat) 0.4 mg SL Q5M PRN PRN Reason: Chest Pain Sacubitril/Valsartan [Entresto 24 Mg-26 Mg Tablet] 1 tab PO BID [facility] Last Admin: 12/11/17 17:35 Dose: 1 tab Sodium Chloride (Saline Flush) 10 ml FLUSH ASDIRECTED PRN PRN Reason: Keep Vein Open Last Admin: 12/11/17 09:38 Dose: 10 ml Sodium Chloride (Saline Flush) 10 ml FLUSH Q12HR [facility] Discontinued Medications Carvedilol (Coreg) 6.25 mg PO BID [facility] Last Admin: 12/10/17 07:56 Dose: 6.25 mg Azithromycin 500 mg/ Sodium (Chloride) 250 mls @ 250 mls/hr IV ONETIME ONE Stop: 12/09/17 12:12 Last Admin: 12/09/17 11:40 Dose: 250 mls/hr Azithromycin 500 mg/ Sodium (Chloride) 250 mls @ 250 mls/hr IV Q24H [facility] Stop: 12/11/17 10:59 Last Admin: 12/11/17 09:38 Dose: 250 mls/hr Lorazepam (Ativan) 0.5 mg PO ONETIME ONE Stop: 12/08/17 19:37 Last Admin: 12/08/17 20:02 Dose: 0.5 mg Lorazepam (Ativan) 1 mg PO ONETIME ONE Stop: 12/09/17 00:25 Last Admin: 12/09/17 00:38 Dose: 1 mg Lorazepam (Ativan) 1 mg PO BEDTIME PRN PRN Reason: Anxiety/Insomnia Last Admin: 12/10/17 21:52 Dose: 1 mg Methylprednisolone Sodium Succinate (Solu-Medrol) 40 mg IVPUSH ONETIME ONE Stop: 12/09/17 16:01 Last Admin: 12/09/17 16:07 Dose: 40 mg - Exam Quality Assessment: Supplemental Oxygen, DVT Prophylaxis General: Alert, Cooperative, No Acute Distress HEENT: Mucous Membr. Moist/[place] Neck: Trachea Midline, No JVD, No Thyromegaly Lungs: Normal Respiratory Effort, Decreased Breath Sounds (LLL) Cardiovascular: Irregular Rhythm GI/Abdominal Exam: Soft, Non-Tender (Male) Exam: Deferred Back Exam: Normal Inspection Extremities: Normal Inspection, Non-Tender, No Pedal Edema Skin: Warm, Dry, Intact Neurological: No New Focal Deficit Psy/Mental Status: Alert, Normal Affect, Normal Mood, Anxious (at times) - Problem List & Annotations (1) Interstitial lung disease SNOMED Code(s): 678860436 Code(s): J84.9 - INTERSTITIAL PULMONARY DISEASE, UNSPECIFIED Status: Acute Priority: High Current Visit: Yes (2) Atherosclerosis SNOMED Code(s): 71339798 Code(s): I70.90 - UNSPECIFIED ATHEROSCLEROSIS Status: Acute Current Visit : Yes (3) Congestive heart failure (CHF) SNOMED Code(s): 21192491 Code(s): I50.9 - HEART FAILURE, UNSPECIFIED Status: Acute Current Visit: Yes Qualifiers: Heart failure type: unspecified Heart failure chronicity: acute Qualified Code(s): I50.9 - Heart failure, unspecified (4) Hyperlipemia SNOMED Code(s): 54756272 Code(s): E78.5 - HYPERLIPIDEMIA, UNSPECIFIED Status: Acute Current Visit : Yes Qualifiers: Hyperlipidemia type: mixed hyperlipidemia Qualified Code(s): E78.2 - Mixed hyperlipidemia (5) Hypertension SNOMED Code(s): 59584175 Code(s): I10 - ESSENTIAL (PRIMARY) HYPERTENSION Status: Acute Current Visit: Yes Qualifiers: Hypertension type: essential hypertension Qualified Code(s): I10 - Essential (primary) hypertension (6) Ischemic cardiomyopathy SNOMED Code(s): 822593876 Code(s): I25.5 - ISCHEMIC CARDIOMYOPATHY Status: Acute Current Visit: Yes (7) Anxiety SNOMED Code(s): 96004786 Code(s): F41.9 - ANXIETY DISORDER, UNSPECIFIED Status: Acute Priority: High Current Visit: Yes (8) Depression SNOMED Code(s): 65563660 Code(s): F32.9 - MAJOR DEPRESSIVE DISORDER, SINGLE EPISODE, UNSPECIFIED Status: Acute Priority: High Current Visit: Yes Qualifiers: Depression Type: reactive depression Qualified Code(s): F32.9 - Major depressive disorder, single episode, unspecified - Problem List Review Problem List Initiated/Reviewed/Updated: Yes - My Orders Last 24 Hours: My Active Orders 12/10/17 18:00 Carvedilol [Coreg] 3.125 mg PO BID 12/11/17 05:11 Chest 2V [CR] Routine 12/11/17 17:42 LORazepam [Ativan] 0.25 mg PO Q4H PRN 12/11/17 20:00 LORazepam [Ativan] 1 mg PO BEDTIME Sodium Chloride 0.9% [Saline Flush] 10 ml FLUSH Q12HR 12/12/17 05:11 EKG Documentation Completion [RC] ASDIRECTED BLOOD GAS VENOUS [BG] Routine CBC WITH AUTO DIFF [HEME] Routine CMP [COMPREHENSIVE METABOLIC PN,CMP] [CHEM] Routine DD [D-DIMER QUANTITATIVE] [COAG] Routine MAGNESIUM [CHEM] Routine PRO B-TYPE NATRIUR PEPT,BNPPRO [CHEM] Routine EKG 12 Lead [EK] Routine 12/12/17 08:00 Chest PE [Ang Chest] [CT] Routine Azithromycin [Zithromax] 500 mg PO DAILY - Plan Plan:: Long discussion was held with the patient and family in regards to his condition and CHF. Called to [facility] in regards to admitting the patient, but recommended hospitalizing in [place] if needed and transfer to [place] if the patient has medical issues that have worsened. Patient and family agree to being hospitalized in [place]. FULL CODE status. Discussed with Dr Camarena, agreed with plan of care. Started on IV Lasix for the CHF. Started Lovenox, ordered d-dimer results are pending. Reviewed cardiology notes from [place] from 08/2017. Recheck labs in the morning. Telemetry ordered to follow heart rate and rhythm, patient may need to have aspirin changed to a different anticoagulation medication if in A fib and based off of CHADS-VAS score and follow up with cardiology. Last echocardiogram was 08/08/2016 with EF 35% with moderate left ventricular dysfunction. Patient needs inpatient stay due to acute CHF and current complex cardiac history. Marielos Nicholson,[employer] NATURALIST 12/09/17 Nicol Hamm MD Still not feeling the best. Still palpitations and pounding in his chest. No chest pain. Still a dry cough and shortness of breath. Did stay in some hotels recently. Discussed mycoplasma and interstiitial lung disease. Quit smoking ~30 years ago but significant exposure to dirt and dust. Will add antibiotics. Continue IV lasix. Discussed continued hospitalization in [place] versus transfer to [place]. He prefers staying in [place] at this time. 12/10/17 Nicol Hamm MD Starting to feel a little better. More relaxed after lorazepam. He and his want him to start Prozac. Mycoplasma negative. Echo report noted. Continue medical treatment. 12/11/17 Nicol Hamm MD Slow clinical improvement. Still shortness of breath and palpitations when he first lays down. No chest pain. Chest x-ray improved but still left pleural effusion. Discussed options of continue medical therapy versus transfer to [place]. He and his do not want transfer to [place].
[2017-12-11] MEDS: Aspirin 81 MG Tab.EC PO SCH (19:54)
[2017-12-11] MEDS: Finasteride 5 MG Tab PO SCH (19:54)
[2017-12-11] MEDS: atorvaSTATin 40 MG Tab PO SCH (19:54)
[2017-12-11] MEDS: Sodium Chloride 0.9% 10 ML Syringe FLUSH SCH (19:55)
[2017-12-11] MEDS ORDERED: LORazepam 1 MG Tab PO SCH (20:00)
[2017-12-12] MEDS: Meropenem 1 GM in Sodium Chloride 0.9% 100 ML IV SCH (04:08)
[2017-12-12] MEDS: Sodium Chloride 0.9% 10 ML Syringe FLUSH PRN (04:09)
[2017-12-12 07:38] LABS: BASE EXCESS VENOUS 4 mmol/L ((-2)-3); BICARBONATE,VENOUS 28 mmol/L (23-28); O2 DELIVERY DEVICE NASAL CANNULA; O2 SATURATION VENOUS 89 %; PCO2 VENOUS 39 mmHG (41-51); PH,VENOUS 7.47 (7.31-7.41); PO2 VENOUS 53 mmHG
[2017-12-12 07:54] LABS: CHLORIDE,CL 107 mmol/L (98-107); SODIUM,NA 142 mmol/L (136-145)
[2017-12-12] MEDS ORDERED: Azithromycin 250 MG Tab PO SCH (08:00)
[2017-12-12] MEDS ORDERED: Iopamidol 612 MG/ML 100 ML Bottle IVPUSH ONE (08:30)
[2017-12-12] MEDS: Fish Oil/Omega-3 Fatty Acids 1 Gm Cap PO SCH (09:38)
[2017-12-12] MEDS: Carvedilol 3.125 MG Tab PO SCH (09:38)
[2017-12-12] MEDS: Sacubitril/Valsartan [Entresto 24 Mg-26 Mg Tablet] PO SCH (09:38)
[2017-12-12] MEDS: FLUoxetine 20 MG Cap PO SCH (09:38)
[2017-12-12] MEDS: Sodium Chloride 0.9% 10 ML Syringe FLUSH SCH (09:39)
[2017-12-12] MEDS: methylPREDNISolone Sodium Succinate 40 MG/1 ML SDV IVPUSH SCH (09:40)
[2017-12-12] MEDS: Furosemide 40 MG/4 ML VIAL IVPUSH SCH (09:40)
[2017-12-12] MEDS: Enoxaparin 40 MG/0.4 ML Syringe SUBCUT SCH (09:40)
--- NOTE | 2017-12-12 13:31 | PCM.PN ---
- General Info Date of Service: 12/12/17 Admission Dx/Problem (Free Text): Admission Diagnosis/Problem Admission Diagnosis/Problem CHF, Congestive heart failure Functional Status: Reports: Tolerating Diet, Ambulating - Review of Systems General: Reports: No Symptoms HEENT: Reports: No Symptoms Pulmonary: Reports: Shortness of Breath (mild) Cardiovascular: Reports: Palpitations (rare) Gastrointestinal: Reports: No Symptoms Genitourinary: Reports: No Symptoms Musculoskeletal: Reports: No Symptoms Skin: Reports: No Symptoms Neurological: Reports: No Symptoms Psychiatric: Reports: No Symptoms - Patient Data Vitals - Most Recent: Last Vital Signs Temp 98.3 F 12/12/17 08:00 Pulse 70 12/12/17 08:00 Resp 16 12/12/17 08:00 BP 149/88 H 12/12/17 08:00 Pulse Ox 97 12/12/17 08:00 Weight - Most Recent: 179 lb 1.6 oz I&O - Last 24 Hours: Intake & Output 12/11/17 12/12/17 12/12/17 22:59 06:59 14:59 Intake Total 422 078 3369 Output Total 350 2375 Balance 80 120 -1135 Lab Results Last 24 Hours: Laboratory Results - last 24 hr 12/12/17 12/12/17 12/12/17 Range/Units 07:15 07:15 07:15 WBC 10.2 (4.0-10.2) K/uL RBC 4.30 L (4.33-5.41) M/uL Hgb 13.6 (13.1-16.8) g/dL Hct 40.0 (39.0-49.0) % MCV 93.0 (84.0-98.0) fL MCH 31.6 (28.2-33.3) pg MCHC 34.0 (31.7-36.0) g/dL RDW 13.5 (11.2-14.1) % Plt Count 131 L (150-350) K/uL Neut % (Auto) 65.0 (45.0-80.0) % Lymph % (Auto) 25.6 (10.0-50.0) % [place] % (Auto) 8.0 (2.0-14.0) % Eos % (Auto) 1.3 (0.0-5.0) % Baso % (Auto) 0.1 (0.0-2.0) % Neut # (Auto) 6.62 (1.40-7.00) K/uL Lymph # (Auto) 2.61 (0.50-3.50) K/uL [place] # (Auto) 0.82 (0.00-1.00) K/uL Eos # (Auto) 0.13 (0.00-0.50) K/uL Baso # (Auto) 0.01 (0.00-0.20) K/uL D-Dimer, Quantitative 243 (0-400) ng/mL VBG pH (7.31-7.41) VBG pCO2 (41-51) mmHG VBG pO2 mmHG VBG HCO3 (23-28) mmol/L VBG Total CO2 mmol/L VBG O2 Saturation % VBG Base Excess ((-2)-3) mmol/L O2 Delivery Device Sodium 142 (136-145) mmol/L Potassium 3.7 (3.5-5.1) mmol/L Chloride 107 (98-107) mmol/L Carbon Dioxide 28.0 (21.0-32.0) mmol/L BUN 20 H (7-18) mg/dL Creatinine 0.94 (0.51-1.17) mg/dL Est Cr Clr Drug Dosing 62.47 mL/min Estimated GFR (MDRD) > 60 mL/min Glucose 91 (74-106) mg/dL Calcium 7.9 L (8.5-10.1) mg/dL Magnesium 2.1 (1.8-2.4) mg/dL Total Bilirubin 1.0 (0.2-1.0) mg/dL AST 30 (15-37) U/L ALT 39 (12-78) U/L Alkaline Phosphatase 67 (46-116) IU/L NT-Pro-B Natriuret Pep 1706 H (0-125) pg/mL Total Protein 5.7 L (6.4-8.2) g/dL Albumin 2.8 L (3.4-5.0) g/dL TSH, Ultra Sensitive 2.829 (0.358-3.740) mIU/mL 12/12/17 Range/Units 07:15 WBC (4.0-10.2) K/uL RBC (4.33-5.41) M/uL Hgb (13.1-16.8) g/dL Hct (39.0-49.0) % MCV (84.0-98.0) fL MCH (28.2-33.3) pg MCHC (31.7-36.0) g/dL RDW (11.2-14.1) % Plt Count (150-350) K/uL Neut % (Auto) (45.0-80.0) % Lymph % (Auto) (10.0-50.0) % [place] % (Auto) (2.0-14.0) % Eos % (Auto) (0.0-5.0) % Baso % (Auto) (0.0-2.0) % Neut # (Auto) (1.40-7.00) K/uL Lymph # (Auto) (0.50-3.50) K/uL [place] # (Auto) (0.00-1.00) K/uL Eos # (Auto) (0.00-0.50) K/uL Baso # (Auto) (0.00-0.20) K/uL D-Dimer, Quantitative (0-400) ng/mL VBG pH 7.47 H (7.31-7.41) VBG pCO2 39 L (41-51) mmHG VBG pO2 53 mmHG VBG HCO3 28 (23-28) mmol/L VBG Total CO2 29 mmol/L VBG O2 Saturation 89 % VBG Base Excess 4 H ((-2)-3) mmol/L O2 Delivery Device Nasal cannula Sodium (136-145) mmol/L Potassium (3.5-5.1) mmol/L Chloride (98-107) mmol/L Carbon Dioxide (21.0-32.0) mmol/L BUN (7-18) mg/dL Creatinine (0.51-1.17) mg/dL Est Cr Clr Drug Dosing mL/min Estimated GFR (MDRD) mL/min Glucose (74-106) mg/dL Calcium (8.5-10.1) mg/dL Magnesium (1.8-2.4) mg/dL Total Bilirubin (0.2-1.0) mg/dL AST (15-37) U/L ALT (12-78) U/L Alkaline Phosphatase (46-116) IU/L NT-Pro-B Natriuret Pep (0-125) pg/mL Total Protein (6.4-8.2) g/dL Albumin (3.4-5.0) g/dL TSH, Ultra Sensitive (0.358-3.740) mIU/mL Med Orders - Current: Current Medications Acetaminophen (Tylenol) 650 mg PO Q4H PRN PRN Reason: Pain (Mild 1-3)/fever Aspirin (Halfprin) 81 mg PO BEDTIME [facility] Last Admin: 12/11/17 19:54 Dose: 81 mg Atorvastatin Calcium (Lipitor) 80 mg PO BEDTIME [facility] Last Admin: 12/11/17 19:54 Dose: 80 mg Azithromycin (Zithromax) 500 mg PO DAILY [facility] Last Admin: 12/12/17 09:38 Dose: 500 mg Carvedilol (Coreg) 3.125 mg PO BID [facility] Last Admin: 12/12/17 09:38 Dose: 3.125 mg Coenzyme Q10 (Coenzyme Q10) 300 mg PO DAILY [facility] Last Admin: 12/12/17 09:37 Dose: 300 mg Enoxaparin Sodium (Lovenox) 40 mg SUBCUT DAILY [facility] Last Admin: 12/12/17 09:40 Dose: 40 mg Finasteride (Proscar) 5 mg PO BEDTIME [facility] Last Admin: 12/11/17 19:54 Dose: 5 mg Fish Oil (Fish Oil) 1 gm PO DAILY [facility] Last Admin: 12/12/17 09:38 Dose: 1 gm Fluoxetine HCl (Prozac) 20 mg PO DAILY [facility] Last Admin: 12/12/17 09:38 Dose: 20 mg Furosemide (Lasix) 40 mg IVPUSH DAILY [facility] Last Admin: 12/12/17 09:40 Dose: 40 mg Meropenem 1 gm/ Sodium (Chloride) 100 mls @ 200 mls/hr IV Q12H [facility] Last Admin: 12/12/17 04:08 Dose: 200 mls/hr Lorazepam (Ativan) 1 mg PO BEDTIME [facility] Last Admin: 12/11/17 19:54 Dose: 1 mg Lorazepam (Ativan) 0.25 mg PO Q4H PRN PRN Reason: Anxiety Last Admin: 12/12/17 12:26 Dose: 0.25 mg Methylprednisolone Sodium Succinate (Solu-Medrol) 40 mg IVPUSH DAILY [facility] Last Admin: 12/12/17 09:40 Dose: 40 mg Nitroglycerin (Nitrostat) 0.4 mg SL Q5M PRN PRN Reason: Chest Pain Sacubitril/Valsartan [Entresto 24 Mg-26 Mg Tablet] 1 tab PO BID [facility] Last Admin: 12/12/17 09:38 Dose: 1 tab Sodium Chloride (Saline Flush) 10 ml FLUSH ASDIRECTED PRN PRN Reason: Keep Vein Open Last Admin: 12/12/17 04:09 Dose: 10 ml Sodium Chloride (Saline Flush) 10 ml FLUSH Q12HR [facility] Last Admin: 12/12/17 09:39 Dose: 10 ml Discontinued Medications Carvedilol (Coreg) 6.25 mg PO BID [facility] Last Admin: 12/10/17 07:56 Dose: 6.25 mg Azithromycin 500 mg/ Sodium (Chloride) 250 mls @ 250 mls/hr IV ONETIME ONE Stop: 12/09/17 12:12 Last Admin: 12/09/17 11:40 Dose: 250 mls/hr Azithromycin 500 mg/ Sodium (Chloride) 250 mls @ 250 mls/hr IV Q24H [facility] Stop: 12/11/17 10:59 Last Admin: 12/11/17 09:38 Dose: 250 mls/hr Iopamidol (Isovue-300 (61%)) 100 ml IVPUSH ONETIME ONE Stop: 12/12/17 08:31 Lorazepam (Ativan) 0.5 mg PO ONETIME ONE Stop: 12/08/17 19:37 Last Admin: 12/08/17 20:02 Dose: 0.5 mg Lorazepam (Ativan) 1 mg PO ONETIME ONE Stop: 12/09/17 00:25 Last Admin: 12/09/17 00:38 Dose: 1 mg Lorazepam (Ativan) 1 mg PO BEDTIME PRN PRN Reason: Anxiety/Insomnia Last Admin: 12/10/17 21:52 Dose: 1 mg Methylprednisolone Sodium Succinate (Solu-Medrol) 40 mg IVPUSH ONETIME ONE Stop: 12/09/17 16:01 Last Admin: 12/09/17 16:07 Dose: 40 mg - Exam Quality Assessment: DVT Prophylaxis General: Alert, Cooperative, No Acute Distress HEENT: Pupils Equal, Pupils Reactive, Mucous Membr. Moist/[place] Neck: Trachea Midline, No JVD Lungs: Clear to Auscultation, Normal Respiratory Effort Cardiovascular: Irregular Rhythm GI/Abdominal Exam: Soft, Non-Tender (Male) Exam: Deferred Back Exam: Normal Inspection Extremities: Normal Inspection, Non-Tender, No Pedal Edema Skin: Warm, Dry, Intact Neurological: No New Focal Deficit Psy/Mental Status: Alert, Normal Affect, Normal Mood - Problem List & Annotations (1) Interstitial lung disease SNOMED Code(s): 341705753 Code(s): J84.9 - INTERSTITIAL PULMONARY DISEASE, UNSPECIFIED Status: Acute Priority: High Current Visit: Yes (2) Atherosclerosis SNOMED Code(s): 84819869 Code(s): I70.90 - UNSPECIFIED ATHEROSCLEROSIS Status: Acute Current Visit : Yes (3) Congestive heart failure (CHF) SNOMED Code(s): 98686714 Code(s): I50.9 - HEART FAILURE, UNSPECIFIED Status: Acute Current Visit: Yes Qualifiers: Heart failure type: unspecified Heart failure chronicity: acute Qualified Code(s): I50.9 - Heart failure, unspecified (4) Hyperlipemia SNOMED Code(s): 79338846 Code(s): E78.5 - HYPERLIPIDEMIA, UNSPECIFIED Status: Acute Current Visit : Yes Qualifiers: Hyperlipidemia type: mixed hyperlipidemia Qualified Code(s): E78.2 - Mixed hyperlipidemia (5) Hypertension SNOMED Code(s): 07664278 Code(s): I10 - ESSENTIAL (PRIMARY) HYPERTENSION Status: Acute Current Visit: Yes Qualifiers: Hypertension type: essential hypertension Qualified Code(s): I10 - Essential (primary) hypertension (6) Ischemic cardiomyopathy SNOMED Code(s): 481025980 Code(s): I25.5 - ISCHEMIC CARDIOMYOPATHY Status: Acute Current Visit: Yes (7) Anxiety SNOMED Code(s): 96741334 Code(s): F41.9 - ANXIETY DISORDER, UNSPECIFIED Status: Acute Priority: High Current Visit: Yes (8) Depression SNOMED Code(s): 14253993 Code(s): F32.9 - MAJOR DEPRESSIVE DISORDER, SINGLE EPISODE, UNSPECIFIED Status: Acute Priority: High Current Visit: Yes Qualifiers: Depression Type: reactive depression Qualified Code(s): F32.9 - Major depressive disorder, single episode, unspecified - Problem List Review Problem List Initiated/Reviewed/Updated: Yes - My Orders Last 24 Hours: My Active Orders 12/11/17 17:42 LORazepam [Ativan] 0.25 mg PO Q4H PRN 12/11/17 20:00 LORazepam [Ativan] 1 mg PO BEDTIME Sodium Chloride 0.9% [Saline Flush] 10 ml FLUSH Q12HR 12/12/17 05:11 EKG Documentation Completion [RC] ASDIRECTED EKG 12 Lead [EK] Routine 12/12/17 08:00 Chest PE [Ang Chest] [CT] Routine Azithromycin [Zithromax] 500 mg PO DAILY 12/12/17 11:42 Ready for Discharge [RC] PER UNIT ROUTINE 12/12/17 13:29 Discontinue Telemetry Monitoring [Cardiac Monitoring Discontinue] [RC] Click to Edit Peripheral IV Discontinue [OM.PC] Routine - Plan Plan:: Long discussion was held with the patient and family in regards to his condition and CHF. Called to [facility] in regards to admitting the patient, but recommended hospitalizing in [place] if needed and transfer to [place] if the patient has medical issues that have worsened. Patient and family agree to being hospitalized in [place]. FULL CODE status. Discussed with Dr Camarena, agreed with plan of care. Started on IV Lasix for the CHF. Started Lovenox, ordered d-dimer results are pending. Reviewed cardiology notes from [place] from 08/2017. Recheck labs in the morning. Telemetry ordered to follow heart rate and rhythm, patient may need to have aspirin changed to a different anticoagulation medication if in A fib and based off of CHADS-VAS score and follow up with cardiology. Last echocardiogram was 08/08/2016 with EF 35% with moderate left ventricular dysfunction. Patient needs inpatient stay due to acute CHF and current complex cardiac history. Marielos Nicholson,[employer]ER 12/09/17 Nicol Hamm MD Still not feeling the best. Still palpitations and pounding in his chest. No chest pain. Still a dry cough and shortness of breath. Did stay in some hotels recently. Discussed mycoplasma and interstiitial lung disease. Quit smoking ~30 years ago but significant exposure to dirt and dust. Will add antibiotics. Continue IV lasix. Discussed continued hospitalization in [place] versus transfer to [place]. He prefers staying in [place] at this time. 12/10/17 Nicol Hamm MD Starting to feel a little better. More relaxed after lorazepam. He and his want him to start Prozac. Mycoplasma negative. Echo report noted. Continue medical treatment. 12/11/17 Nicol Hamm MD Slow clinical improvement. Still shortness of breath and palpitations when he first lays down. No chest pain. Chest x-ray improved but still left pleural effusion. Discussed options of continue medical therapy versus transfer to [place]. He and his do not want transfer to [place]. 12/12/17 Nicol Hamm MD Feels better. Stable for discharge to home.
--- NOTE | 2017-12-12 13:36 | PCM.DCSUM1 ---
Discharge Summary - Hospital Course Diagnosis: Stroke: No - Discharge Data Discharge Date: 12/12/17 Discharge Disposition: Home, Self-Care 01 Condition: Good - Discharge Diagnosis/Problem(s) (1) Interstitial lung disease SNOMED Code(s): 095888608 ICD Code: J84.9 - INTERSTITIAL PULMONARY DISEASE, UNSPECIFIED Status: Acute Priority: High Current Visit: Yes (2) Atherosclerosis SNOMED Code(s): 02437494 ICD Code: I70.90 - UNSPECIFIED ATHEROSCLEROSIS Status: Acute Current Visit: Yes (3) Congestive heart failure (CHF) SNOMED Code(s): 78756674 ICD Code: I50.9 - HEART FAILURE, UNSPECIFIED Status: Acute Current Visit : Yes Qualifiers: Heart failure type: unspecified Heart failure chronicity: acute Qualified Code(s): I50.9 - Heart failure, unspecified (4) Hyperlipemia SNOMED Code(s): 18323212 ICD Code: E78.5 - HYPERLIPIDEMIA, UNSPECIFIED Status: Acute Current Visit : Yes Qualifiers: Hyperlipidemia type: mixed hyperlipidemia Qualified Code(s): E78.2 - Mixed hyperlipidemia (5) Hypertension SNOMED Code(s): 17422704 ICD Code: I10 - ESSENTIAL (PRIMARY) HYPERTENSION Status: Acute Current Visit: Yes Qualifiers: Hypertension type: essential hypertension Qualified Code(s): I10 - Essential (primary) hypertension (6) Ischemic cardiomyopathy SNOMED Code(s): 930187619 ICD Code: I25.5 - ISCHEMIC CARDIOMYOPATHY Status: Acute Current Visit: Yes (7) Anxiety SNOMED Code(s): 53147198 ICD Code: F41.9 - ANXIETY DISORDER, UNSPECIFIED Status: Acute Priority: High Current Visit: Yes (8) Depression SNOMED Code(s): 75613187 ICD Code: F32.9 - MAJOR DEPRESSIVE DISORDER, SINGLE EPISODE, UNSPECIFIED Status: Acute Priority: High Current Visit: Yes Qualifiers: Depression Type: reactive depression Qualified Code(s): F32.9 - Major depressive disorder, single episode, unspecified - Patient Summary/Data Consults: Consultations 12/10/17 15:25 Consult to Occupational Therapy [OT Evaluation and Treatment] [CONS] Routine Consult to Physical Therapy [PT Evaluation and Treatment] [CONS] Routine - Patient Instructions Diet: Heart Healthy Diet Activity: As Tolerated Driving: May Drive Today Showering/Bathing: May Shower - Discharge Plan *PRESCRIPTION DRUG MONITORING PROGRAM REVIEWED*: Not Applicable *COPY OF PRESCRIPTION DRUG MONITORING REPORT IN PATIENT KI: Not Applicable Prescriptions/Med Rec: Azithromycin [Zithromax] 500 mg PO DAILY #3 tab Carvedilol [Coreg] 3.125 mg PO BID #60 tablet FLUoxetine HCl [Prozac] 20 mg PO DAILY #30 capsule Furosemide [Lasix] 40 mg PO DAILY #30 tablet LORazepam 1 mg PO BEDTIME #75 tablet Home Medications: Home Meds Aspirin [Halfprin] 81 mg PO BEDTIME 12/08/17 [History] Calcium Citrate 500 mg PO BID 12/08/17 [History] Finasteride [Proscar] 5 mg PO BEDTIME 12/08/17 [History] Fluticasone Propionate [Flonase] 1 spray LIZETH ASDIRECTED PRN 12/08/17 [History] Garlic Extract [Garlipure] 600 mg PO DAILY 12/08/17 [History] L.acidoph,Paracasei, B.lactis [Probiotic] 1 cap PO QPM 12/08/17 [History] Non-Formulary Medication [NF Drug] 2 cap PO BID 12/08/17 [History] [address]-3/DHA/Epa/Fish Oil [Fish Oil 1,400 MG Softgel] 1 cap PO DAILY 12/08/17 [ History] Sacubitril/Valsartan [Entresto 24 mg-26 mg Tablet] 1 tab PO BID 12/08/17 [ History] Selenium 200 mcg PO DAILY 12/08/17 [History] Ubidecarenone [Coq-10] 300 mg PO DAILY 12/08/17 [History] Zinc Amino Acid Chelate [Zinc Chelated] 50 mg PO DAILY 12/08/17 [History] atorvaSTATin Calcium [Atorvastatin Calcium] 80 mg PO BEDTIME 12/08/17 [History] Azithromycin [Zithromax] 500 mg PO DAILY #3 tab 12/12/17 [Rx] Carvedilol [Coreg] 3.125 mg PO BID #60 tablet 12/12/17 [Rx] FLUoxetine HCl [Prozac] 20 mg PO DAILY #30 capsule 12/12/17 [Rx] Furosemide [Lasix] 40 mg PO DAILY #30 tablet 12/12/17 [Rx] LORazepam 1 mg PO BEDTIME #75 tablet 12/12/17 [Rx] Patient Handouts: Furosemide injection, Meropenem injection, Azithromycin for infusion, Enoxaparin injection, Lorazepam tablets, Heart Failure, Kest-wo-Bkim, Fluoxetine capsules or tablets (Depression/Mood Disorders), How and Where to Give Subcutaneous Enoxaparin Injections - Discharge Summary/Plan Comment DC Time >30 min.: No Discharge Summary/Plan Comment: 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 - Patient Data Vitals - Most Recent: Last Vital Signs Temp 98.3 F 12/12/17 08:00 Pulse 70 12/12/17 08:00 Resp 16 12/12/17 08:00 BP 149/88 H 12/12/17 08:00 Pulse Ox 97 12/12/17 08:00 Weight - Most Recent: 179 lb 1.6 oz I&O - Last 24 hours: Intake & Output 12/11/17 12/12/17 12/12/17 22:59 06:59 14:59 Intake Total 956 870 6584 Output Total 350 2375 Balance 80 120 -1135 Lab Results - Last 24 hrs: Laboratory Results - last 24 hr 12/12/17 12/12/17 12/12/17 Range/Units 07:15 07:15 07:15 WBC 10.2 (4.0-10.2) K/uL RBC 4.30 L (4.33-5.41) M/uL Hgb 13.6 (13.1-16.8) g/dL Hct 40.0 (39.0-49.0) % MCV 93.0 (84.0-98.0) fL MCH 31.6 (28.2-33.3) pg MCHC 34.0 (31.7-36.0) g/dL RDW 13.5 (11.2-14.1) % Plt Count 131 L (150-350) K/uL Neut % (Auto) 65.0 (45.0-80.0) % Lymph % (Auto) 25.6 (10.0-50.0) % [place] % (Auto) 8.0 (2.0-14.0) % Eos % (Auto) 1.3 (0.0-5.0) % Baso % (Auto) 0.1 (0.0-2.0) % Neut # (Auto) 6.62 (1.40-7.00) K/uL Lymph # (Auto) 2.61 (0.50-3.50) K/uL [place] # (Auto) 0.82 (0.00-1.00) K/uL Eos # (Auto) 0.13 (0.00-0.50) K/uL Baso # (Auto) 0.01 (0.00-0.20) K/uL D-Dimer, Quantitative 243 (0-400) ng/mL VBG pH (7.31-7.41) VBG pCO2 (41-51) mmHG VBG pO2 mmHG VBG HCO3 (23-28) mmol/L VBG Total CO2 mmol/L VBG O2 Saturation % VBG Base Excess ((-2)-3) mmol/L O2 Delivery Device Sodium 142 (136-145) mmol/L Potassium 3.7 (3.5-5.1) mmol/L Chloride 107 (98-107) mmol/L Carbon Dioxide 28.0 (21.0-32.0) mmol/L BUN 20 H (7-18) mg/dL Creatinine 0.94 (0.51-1.17) mg/dL Est Cr Clr Drug Dosing 62.47 mL/min Estimated GFR (MDRD) > 60 mL/min Glucose 91 (74-106) mg/dL Calcium 7.9 L (8.5-10.1) mg/dL Magnesium 2.1 (1.8-2.4) mg/dL Total Bilirubin 1.0 (0.2-1.0) mg/dL AST 30 (15-37) U/L ALT 39 (12-78) U/L Alkaline Phosphatase 67 (46-116) IU/L NT-Pro-B Natriuret Pep 1706 H (0-125) pg/mL Total Protein 5.7 L (6.4-8.2) g/dL Albumin 2.8 L (3.4-5.0) g/dL TSH, Ultra Sensitive 2.829 (0.358-3.740) mIU/mL 12/12/17 Range/Units 07:15 WBC (4.0-10.2) K/uL RBC (4.33-5.41) M/uL Hgb (13.1-16.8) g/dL Hct (39.0-49.0) % MCV (84.0-98.0) fL MCH (28.2-33.3) pg MCHC (31.7-36.0) g/dL RDW (11.2-14.1) % Plt Count (150-350) K/uL Neut % (Auto) (45.0-80.0) % Lymph % (Auto) (10.0-50.0) % [place] % (Auto) (2.0-14.0) % Eos % (Auto) (0.0-5.0) % Baso % (Auto) (0.0-2.0) % Neut # (Auto) (1.40-7.00) K/uL Lymph # (Auto) (0.50-3.50) K/uL [place] # (Auto) (0.00-1.00) K/uL Eos # (Auto) (0.00-0.50) K/uL Baso # (Auto) (0.00-0.20) K/uL D-Dimer, Quantitative (0-400) ng/mL VBG pH 7.47 H (7.31-7.41) VBG pCO2 39 L (41-51) mmHG VBG pO2 53 mmHG VBG HCO3 28 (23-28) mmol/L VBG Total CO2 29 mmol/L VBG O2 Saturation 89 % VBG Base Excess 4 H ((-2)-3) mmol/L O2 Delivery Device Nasal cannula Sodium (136-145) mmol/L Potassium (3.5-5.1) mmol/L Chloride (98-107) mmol/L Carbon Dioxide (21.0-32.0) mmol/L BUN (7-18) mg/dL Creatinine (0.51-1.17) mg/dL Est Cr Clr Drug Dosing mL/min Estimated GFR (MDRD) mL/min Glucose (74-106) mg/dL Calcium (8.5-10.1) mg/dL Magnesium (1.8-2.4) mg/dL Total Bilirubin (0.2-1.0) mg/dL AST (15-37) U/L ALT (12-78) U/L Alkaline Phosphatase (46-116) IU/L NT-Pro-B Natriuret Pep (0-125) pg/mL Total Protein (6.4-8.2) g/dL Albumin (3.4-5.0) g/dL TSH, Ultra Sensitive (0.358-3.740) mIU/mL Med Orders - Current: Current Medications Acetaminophen (Tylenol) 650 mg PO Q4H PRN PRN Reason: Pain (Mild 1-3)/fever Aspirin (Halfprin) 81 mg PO BEDTIME [facility] Last Admin: 12/11/17 19:54 Dose: 81 mg Atorvastatin Calcium (Lipitor) 80 mg PO BEDTIME [facility] Last Admin: 12/11/17 19:54 Dose: 80 mg Azithromycin (Zithromax) 500 mg PO DAILY [facility] Last Admin: 12/12/17 09:38 Dose: 500 mg Carvedilol (Coreg) 3.125 mg PO BID [facility] Last Admin: 12/12/17 09:38 Dose: 3.125 mg Coenzyme Q10 (Coenzyme Q10) 300 mg PO DAILY [facility] Last Admin: 12/12/17 09:37 Dose: 300 mg Enoxaparin Sodium (Lovenox) 40 mg SUBCUT DAILY [facility] Last Admin: 12/12/17 09:40 Dose: 40 mg Finasteride (Proscar) 5 mg PO BEDTIME [facility] Last Admin: 12/11/17 19:54 Dose: 5 mg Fish Oil (Fish Oil) 1 gm PO DAILY [facility] Last Admin: 12/12/17 09:38 Dose: 1 gm Fluoxetine HCl (Prozac) 20 mg PO DAILY [facility] Last Admin: 12/12/17 09:38 Dose: 20 mg Furosemide (Lasix) 40 mg IVPUSH DAILY [facility] Last Admin: 12/12/17 09:40 Dose: 40 mg Meropenem 1 gm/ Sodium (Chloride) 100 mls @ 200 mls/hr IV Q12H [facility] Last Admin: 12/12/17 04:08 Dose: 200 mls/hr Lorazepam (Ativan) 1 mg PO BEDTIME [facility] Last Admin: 12/11/17 19:54 Dose: 1 mg Lorazepam (Ativan) 0.25 mg PO Q4H PRN PRN Reason: Anxiety Last Admin: 12/12/17 12:26 Dose: 0.25 mg Methylprednisolone Sodium Succinate (Solu-Medrol) 40 mg IVPUSH DAILY [facility] Last Admin: 12/12/17 09:40 Dose: 40 mg Nitroglycerin (Nitrostat) 0.4 mg SL Q5M PRN PRN Reason: Chest Pain Sacubitril/Valsartan [Entresto 24 Mg-26 Mg Tablet] 1 tab PO BID [facility] Last Admin: 12/12/17 09:38 Dose: 1 tab Sodium Chloride (Saline Flush) 10 ml FLUSH ASDIRECTED PRN PRN Reason: Keep Vein Open Last Admin: 12/12/17 04:09 Dose: 10 ml Sodium Chloride (Saline Flush) 10 ml FLUSH Q12HR [facility] Last Admin: 12/12/17 09:39 Dose: 10 ml Discontinued Medications Carvedilol (Coreg) 6.25 mg PO BID [facility] Last Admin: 12/10/17 07:56 Dose: 6.25 mg Azithromycin 500 mg/ Sodium (Chloride) 250 mls @ 250 mls/hr IV ONETIME ONE Stop: 12/09/17 12:12 Last Admin: 12/09/17 11:40 Dose: 250 mls/hr Azithromycin 500 mg/ Sodium (Chloride) 250 mls @ 250 mls/hr IV Q24H [facility] Stop: 12/11/17 10:59 Last Admin: 12/11/17 09:38 Dose: 250 mls/hr Iopamidol (Isovue-300 (61%)) 100 ml IVPUSH ONETIME ONE Stop: 12/12/17 08:31 Lorazepam (Ativan) 0.5 mg PO ONETIME ONE Stop: 12/08/17 19:37 Last Admin: 12/08/17 20:02 Dose: 0.5 mg Lorazepam (Ativan) 1 mg PO ONETIME ONE Stop: 12/09/17 00:25 Last Admin: 12/09/17 00:38 Dose: 1 mg Lorazepam (Ativan) 1 mg PO BEDTIME PRN PRN Reason: Anxiety/Insomnia Last Admin: 12/10/17 21:52 Dose: 1 mg Methylprednisolone Sodium Succinate (Solu-Medrol) 40 mg IVPUSH ONETIME ONE Stop: 12/09/17 16:01 Last Admin: 12/09/17 16:07 Dose: 40 mg
== END 2017-12-12 13:30 | disposition home or self-care (01) | DRG 292 ==
LOC: LL.DI 10:44 → LL.MS 12:01 → UNDOADMIN 12:01 → LL.MS 12:24
PROVIDERS: ADMIT Nurse Practitioner Family; ATTEND Family Medicine
DX: I11.0 Hypertensive heart disease with heart failure (principal); J84.9 Interstitial pulmonary disease, unspecified; R05 Cough; I50.9 Heart failure, unspecified; I25.5 Ischemic cardiomyopathy; I25.10 Atherosclerotic heart disease of native coronary artery without angina pectoris; H54.7 Unspecified visual loss; I25.2 Old myocardial infarction; M19.90 Unspecified osteoarthritis, unspecified site; E78.5 Hyperlipidemia, unspecified; F41.9 Anxiety disorder, unspecified; F32.9 Major depressive disorder, single episode, unspecified; Z87.891 Personal history of nicotine dependence; Z95.810 Presence of automatic (implantable) cardiac defibrillator; Z95.5 Presence of coronary angioplasty implant and graft; Z79.899 Other long term (current) drug therapy; Z85.820 Personal history of malignant melanoma of skin; Z88.0 Allergy status to penicillin
CPT/HCPCS: 36415; 71046; 71275; 80053; 82803; 83735; 83880; 84443; 84484; 85025; 85379; 86140; 86738; 93005; 93306; A9270-GY; J0456; J1650; J1940; J2185; J2920; J7050